=== PATIENT | female | born 1990 | race Hispanic/Latino ===

== ENCOUNTER 2017-06-16 00:02 | Emergency (ER) | payer OTHER, SELFPAY | END 2017-06-16 00:17 | disposition left against medical advice (07) | LOC: ERS 00:02 | DX: Z53.21 Procedure and treatment not carried out due to patient leaving prior to being seen by health care provider (principal) ==

== ENCOUNTER 2017-06-16 00:34 | Emergency (ER) | payer OTHER, SELFPAY ==
[2017-06-16 00:55] LABS: Bilirubin Unable to Interpret (Negative); Blood, Urine Unable to Interpret (Negative); Glucose, Urine (Dipstick) Unable to Interpret mg/dL (Negative); Ketone, Urine Unable to Interpret mg/dL (Negative); Nitrite Unable to Interpret (Negative); Protein, Urine (Dipstick) Unable to Interpret mg/dL (Neg-Trace); Urobilinogen UNABLE TO INTERPRET mg/dL (0.2-1.0)
[2017-06-16 00:57] LABS: Bacteria/HPF 3+ HPF (None Seen); Hyaline Casts/LPF 0-3 HYALINE CAST LPF (0-3 Hyaline)
== END 2017-06-16 01:22 | disposition home or self-care (01) ==
LOC: SCSER 00:34
DX: R35.0 Frequency of micturition (principal); R30.0 Dysuria; R10.30 Lower abdominal pain, unspecified; R11.0 Nausea
CPT/HCPCS: 81003; 81015; 81025; 87077; 87086; 87186; 99283

== ENCOUNTER 2018-05-07 15:48 | Emergency (ER) | payer OTHER ==
[2018-05-07 16:33] LABS: Bilirubin Negative (Negative); Blood, Urine Negative (Negative); Clarity CLOUDY (Clear); Glucose, Urine (Dipstick) Negative (Negative); Leukocyte Small (Negative); Nitrite Negative (Negative); Protein, Urine (Dipstick) Trace mg/dL (Neg-Trace); Specific Gravity, Urine 1.034 (1.002-1.036); Urobilinogen 0.2 mg/dL (0.2-1.0)
[2018-05-07 16:36] LABS: Bacteria/HPF 1+ HPF (None Seen); Pathc Cast-AUWi Flag 2.03 (0-2.49)
[2018-05-07 16:39] LABS: Hyaline Casts/LPF 0-3 HYALINE CAST LPF (0-3 Hyaline)
[2018-05-07 16:59] LABS: #Basophils 0.1 thou/uL (0.0-0.2); #Eosinphils 0.1 thou/uL (0.0-0.7); #Monocytes 0.5 thou/uL (0.11-0.59); #Neutrophils 4.7 thou/uL (1.40-6.50); %Basophils 1.2 % (0.0-1.0); %Eosinophils 1.1 % (0.0-10.0); %Lymphocytes 27.5 % (21.0-51.0); %Monocytes 6.5 % (0.0-10.0); %Neutrophils 63.8 % (42.0-75.0); Hemoglobin 13.8 g/dL (12.0-16.0); Mean Corpuscular HGB CONC 33.8 g/dL (32.0-36.0); Mean Corpuscular Hemoglobin 31.6 pg (27.0-31.0); Mean Corpuscular Volume 93.4 fL (78.0-98.0); Mean Platelet Volume 7.1 fL (7.4-10.4); Platelet Count 296 thou/uL (130-400); RBC Distribution Width 12.6 % (11.5-14.5); Red Blood Cell (RBC) Count 4.37 mill/uL (4.20-5.40); White Blood Cell (WBC) Count 7.4 thou/uL (4.8-10.8)
[2018-05-07] MEDS ORDERED: cefTRIAXone\\ROCEPHIN 2 GM VIAL ONE (16:59)
--- NOTE | 2018-05-07 17:03 | ULT ---
PELVIC ULTRASOUND INCLUDING TRANSABDOMINAL AND VASCULAR DUPLEX WITH COLOR AND SPECTRAL DOPPLER IMAGIN 05/07/18 HISTORY: 27-year-old female with vaginal bleeding. The uterus measures 12.4 x 10.0 x 9.5 cm. The right ovary measures 2.6 x 2.3 x 1.9 cm. The left ovary measures 2.0 x 1.9 x 1.1 cm. There is a viable intrauterine fetus noted with a crown-rump length of 6.6 cm equivalent to 12 weeks, 6 days. heart rate 160 beats per minute. No abscess or abnormal fluid collection. IMPRESSION: Viable intrauterine fetus at 12 weeks, 6 days. EDC 11/13/18. POS: [facility]
[2018-05-07 17:26] LABS: Anion Gap 11 mmol/L (10-20); BUN (Urea Nitrogen) 7 mg/dL (7.0-18.7); Calc. Creatinine Clearance 0 mL/min (70-130); Calcium 8.8 mg/dL (7.8-10.44); Carbon Dioxide 22 mmol/L (22-29); Chloride 107 mmol/L (98-107); Estimated GFR-MDRD Greater than 90; Glucose 78 mg/dL (70-105); Potassium 3.5 mmol/L (3.5-5.1); Sodium 136 mmol/L (136-145)
== END 2018-05-07 22:17 | disposition home or self-care (01) ==
LOC: EEVIPCON 15:48 → ERS 15:48
DX: N39.0 Urinary tract infection, site not specified (principal); J45.909 Unspecified asthma, uncomplicated; F90.9 Attention-deficit hyperactivity disorder, unspecified type; Z79.899 Other long term (current) drug therapy
CPT/HCPCS: 76856; 80048; 81003; 81015; 84702; 85025; 86900; 86901; 87086; 93976; 96361; 96365; J0696

== ENCOUNTER 2018-07-01 15:30 | Outpatient (CLI) | payer OTHER ==
--- NOTE | 2018-07-01 16:52 | ULT ---
ULTRASOUND OB COMPLETE STANDARD 07/01/18 HISTORY: Anatomy scan. COMPARISON: 05/07/18. FINDINGS: Single viable intrauterine with average ultrasound age of 20 week, 5 day with estimated simone e of delivery 11/13/18. Estimated weight is 13 oz, 91st percentile. BIOMETRY: Biparietal diameter 4.95 cm 21 week, 0 day Head circumference 17.94 cm 20 week, 3 day Abdominal circumference 15.38 cm 20 week, 5 day Femur length 3.32 cm 20 week, 3 day heart rate documented at 135 beats per minute. Amniotic fluid index measures 15.49 cm. The placenta is posterior and the presentation is cephalic. No placenta previa. The head, cerebellum, cisterna magna, and lateral ventricles, four chamber heart, stomach, kidneys, c ord insertion, bladder, cervicothoracic and lumbar and sacral spine as well as lips/nose, upper extre mities, lower extremities, and three vessel cord are all normal. Two separate echogenic intracardiac foci are present. IMPRESSION: Single viable intrauterine with normal anatomy scan with two separate echogenic intracardia c foci. POS: [facility]
== END 2018-07-01 15:31 | disposition home or self-care (01) ==
LOC: BICULT 15:30
PROVIDERS: ATTEND Family Medicine
DX: Z34.91 Encounter for supervision of normal pregnancy, unspecified, first trimester (principal); Z3A.17 17 weeks gestation of pregnancy
CPT/HCPCS: 76805

== ENCOUNTER 2018-10-18 14:04 | Day surgery (SDC) | payer OTHER ==
[2018-10-18] MEDS ORDERED: Sodium Chloride 0.9% 1,000 ML IV SCH (15:15)
[2018-10-18 17:01] LABS: Anion Gap 10 mmol/L (10-20); BUN (Urea Nitrogen) 7 mg/dL (7.0-18.7); Calc. Creatinine Clearance 0 mL/min (70-130); Calcium 8.3 mg/dL (7.8-10.44); Carbon Dioxide 22 mmol/L (22-29); Chloride 110 mmol/L (98-107); Estimated GFR-MDRD Greater than 90; Glucose 88 mg/dL (70-105); Potassium 3.8 mmol/L (3.5-5.1); Sodium 138 mmol/L (136-145)
--- NOTE | 2018-10-18 18:01 | PRG ---
DATE OF SERVICE: 10/18/2018 PRIMARY OB: Herberth Morales MD CHIEF COMPLAINT: Dizziness and presyncope at work. HISTORY OF PRESENT ILLNESS: The patient is a 28-year-old G3, P2 female with an intrauterine at 35 weeks and 1 day, who presents to Labor and Delivery ER from work, where she had dizziness and a near syncopal episode. 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 The patient does report she has these dizziness episodes, though none as severe as today. She reports that they do occur more frequently when she is getting up from a seating position. The patient reports that she drinks 3 to 4 quarts of water a day. Denies any recent illness. Denies nausea, vomiting, diarrhea, or constipation. She denies any chest pain or shortness of breath. Denies any hip problems, knee problems, or muscle weakness. Denies any new rashes. Denies vaginal bleeding or leakage of fluid. Denies urinary urgency. The patient does report she at our initial visit was still experiencing some dizziness. PAST MEDICAL HISTORY: Negative. PAST SURGICAL HISTORY: Negative. ALLERGIES: NO KNOWN DRUG ALLERGIES. MEDICATIONS: vitamins. SOCIAL HISTORY: Denies drug, alcohol, or tobacco use. OB LABS: GC and chlamydia are negative. She is rubella immune. Hepatitis B surface antigen nonreactive. Syphilis nonreactive. One-hour Glucola was 143. Her 3-hour test was 143, 142, 119, and 104. Blood type is unavailable. REVIEW OF SYSTEMS: Per HPI. PHYSICAL EXAMINATION: VITAL SIGNS: Blood pressure is 99/57, pulse of 77, respiratory rate of 18, saturating 98% on room air, and temperature 99.2. GENERAL: She appears to be in no acute distress. She is alert, oriented, cooperative, and pleasant to interact with. HEAD: Normocephalic and atraumatic. LUNGS: Clear to auscultation bilaterally. HEART: Has regular rate and rhythm. ABDOMEN: Soft and gravid, nontender. EXTREMITIES: Nontender, nonedematous. : Has been deferred. LABORATORY DATA: Sodium 138, potassium 3.8, chloride 110, creatinine of 0.55, glucose 88, calcium 8.3. EKG shows normal sinus rhythm. heart tracing shows baseline in the 130s with moderate long-term variability, positive accelerations, no decelerations. Tocometer is without contractions. ASSESSMENT AND PLAN: The patient is a 28-year-old G3, P1 female with an intrauterine at 35 weeks, who presented for presyncopal episode, which by history seems to be a vasovagal response. Her electrolytes are all within normal limits. EKG is normal given the overall picture. Reassurance has been given to the patient. She has been instructed to go home and rest today and I explained to her some of the physiology behind what may be occurring so that she can take more time in transitioning from sitting to standing when necessary. The patient has a followup appointment with her primary OB next week, which she has been encouraged to keep. Job ID: [id number]
--- NOTE | 2018-10-21 07:06 | EKG ---
Test Reason : Blood Pressure : / mmHG Vent. Rate : 069 BPM Atrial Rate : 069 BPM P-R Int : 140 ms QRS Dur : 082 ms QT Int : 426 ms P-R-T Axes : 033 007 007 degrees QTc Int : 456 ms Normal sinus rhythm with sinus arrhythmia Normal ECG When compared with ECG of 19-MAR-2008 03:42, No significant change was found Confirmed by NARINDER SCHULTZ ([id number]) on 10/21/2018 7:06:24 AM Referred By: SANNA Confirmed By:NARINDER SCHULTZ
== END 2018-10-18 17:06 | disposition home health service (06) ==
LOC: ERS 14:04 → L&D/OP 14:13
PROVIDERS: ATTEND Family Medicine
DX: O26.813 Pregnancy related exhaustion and fatigue, third trimester (principal); R42 Dizziness and giddiness; R55 Syncope and collapse; Z3A.35 35 weeks gestation of pregnancy; Z79.899 Other long term (current) drug therapy
CPT/HCPCS: 36415; 36416; 80048; 93005; 93010; 96360; 96361; 99283

== ENCOUNTER 2018-11-14 15:29 | Inpatient (IN) | payer OTHER ==
--- NOTE | 2018-11-14 17:04 | HP ---
HISTORY OF PRESENT ILLNESS: This is a 28-year-old female, G3, P1-0-1-1 at 39 weeks' gestation with an EDC of 11/20, being admitted for an elective Cytotec/Pitocin induction. The patient does have a history of one prior normal vaginal delivery. Her course has been uncomplicated. PAST MEDICAL HISTORY: Includes psoriasis, reactive airway disease, and attention deficit disorder. PAST SURGICAL HISTORY: Include tonsillectomy, adenoidectomy, spontaneous AB x1, spontaneous vaginal delivery x1, and hemorrhoidectomy. FAMILY HISTORY: Positive for diabetes and mental illness. SOCIAL HISTORY: The patient is a common-law. She has one son. She is a nonsmoker. She works as a beautician. REVIEW OF SYSTEMS: As above. PHYSICAL EXAMINATION: VITAL SIGNS: Stable, afebrile. HEENT: Clear. HEART: Clear. LUNGS: Clear. ABDOMEN: Gravid. EXTREMITIES: No edema. LABORATORY DATA: GBS positive. 3-hour GTT normal. A1c 3.8. HIV negative. Hematocrit 33.5. Thyroid normal. HIV negative. Hepatitis B negative. Urine culture negative. RPR negative. Rubella immune. O positive blood type. Pap smear normal. ASSESSMENT: 1. Term intrauterine . 2. GBS positive. PLAN: 1. Routine L and D orders. 2. Anesthesia preop. 3. GBS prophylaxis. 4. Cytotec/Pitocin induction. Job ID: [id number]
[2018-11-14] MEDS ORDERED: HYDROcodone/Acetaminophen 5/325 mg Tablet PO PRN (21:14)
[2018-11-14] MEDS ORDERED: Methylergonovine 0.2 MG/ML VIAL IM PRN (21:14)
[2018-11-14] MEDS ORDERED: Promethazine HCl 25 MG/ML VIAL IM PRN (21:14)
[2018-11-14] MEDS ORDERED: Misoprostol 200 MCG TAB PR PRN (21:14)
[2018-11-14] MEDS ORDERED: Lidocaine 1% (PF) 30 ML VIAL SC PRN (21:14)
[2018-11-14] MEDS ORDERED: NS w/ Oxytocin 10 units 500 ML IV SCH (21:14)
[2018-11-14] MEDS ORDERED: Acetaminophen 500 MG TAB PO PRN (21:14)
[2018-11-14] MEDS ORDERED: Ondansetron PF 4 MG/2 ML Vial IVP PRN (21:14)
[2018-11-14] MEDS ORDERED: Butorphanol Tartrate 1 MG/ML VIAL SLOW IVP PRN (21:14)
[2018-11-14] MEDS ORDERED: Penicillin G Potassium 5 MILL.UNITS in Sodium Chloride 0.9% 100 ML IVPB SCH (21:15)
[2018-11-14 21:54] VITALS: BMI 29.9
[2018-11-14] MEDS ORDERED: Misoprostol 100 MCG TAB VAG SCH (22:00)
[2018-11-14] MEDS: Lactated Ringer's 1,000 ML IV SCH (22:00)
[2018-11-14 22:28] LABS: Hemoglobin 10.6 g/dL (12.0-16.0); Mean Corpuscular HGB CONC 34.1 g/dL (32.0-36.0); Mean Corpuscular Hemoglobin 27.9 pg (27.0-31.0); Mean Corpuscular Volume 81.7 fL (78.0-98.0); Mean Platelet Volume 7.4 fL (7.4-10.4); Platelet Count 322 thou/uL (130-400); RBC Distribution Width 14.6 % (11.5-14.5); White Blood Cell (WBC) Count 7.3 thou/uL (4.8-10.8)
[2018-11-14 23:06] LABS: HBSAg Index 0.24 S/CO (0-0.99); Hep B Surf Ag Non-Reactive S/CO (NonReactive)
[2018-11-14 23:08] LABS: Syphilis Antibody Nonreactive (Nonreactive); Syphilis Antibody Index 0.04 S/CO (<1.00 Non-Reactive)
[2018-11-15] MEDS: Lactated Ringer's 1,000 ML IV SCH (02:30)
[2018-11-15] MEDS ORDERED: Fentanyl 4 mcg/Bup 0.1% Cadd 100 ML ONE (03:02)
[2018-11-15] MEDS: Penicillin G 2.5 MILL.units 2.5 MILL.UNITS in Premix Bag 1 BAG IVPB SCH ×3 (03:04→18:27)
[2018-11-15] MEDS ORDERED: Eucerin (Mineral Oil/Petrolatum,White) 30 gm Jar TOP PRN (03:17)
[2018-11-15] MEDS ORDERED: Ondansetron PF 4 MG/2 ML Vial IVP PRN ×2 (03:17→11:19)
[2018-11-15] MEDS ORDERED: Lactated Ringer's 500 ML IV PRN (03:17)
[2018-11-15] MEDS ORDERED: ePHEDrine/0.9% NaCl/PF SYRINGE 50 mg/10 ml SLOW IVP PRN (03:17)
[2018-11-15] MEDS ORDERED: Acetaminophen 325 MG TAB PO PRN (03:17)
[2018-11-15] MEDS ORDERED: Promethazine HCl 25 MG/ML VIAL IM PRN (03:17)
[2018-11-15] MEDS ORDERED: diphenhydrAMINE 50 MG/ML VIAL IVP PRN (03:17)
[2018-11-15] MEDS ORDERED: Naloxone HCl 0.4 mg/ml Vial IVP PRN ×2 (03:17)
[2018-11-15] MEDS ORDERED: Fentanyl 4 mcg/Bupivacaine 0.1% Cassette 100 ML EPIDURAL SCH (03:30)
[2018-11-15] MEDS ORDERED: Communication Order-Pharmacy FS SCH (03:30)
[2018-11-15] MEDS: NS / Oxytocin 40 units/1000ml 1,000 ML IV PRN ×2 (08:26→10:31)
--- NOTE | 2018-11-15 11:15 | OP ---
DATE OF PROCEDURE: 11/15/2018 PREOPERATIVE DIAGNOSIS: Term . POSTOPERATIVE DIAGNOSIS: Term . PROCEDURE PERFORMED: Spontaneous vaginal delivery, repair of first-degree midline episiotomy. DESCRIPTION OF PROCEDURE: This 28-year-old white [place] female, G3, P1, taken to the delivery in complete pushing. Prepped and draped sterilely. Delivered a baby girl with Apgars of 8 at 1 minute and 9 at 5 minutes. Baby did breathe and cry vigorously upon delivery. Delivery of the placenta, 3-vessel intact. We repaired a first-degree midline episiotomy with 3-0 chromic. Baby did well. Estimated blood loss 300 mL. Job ID: [id number]
[2018-11-15] MEDS ORDERED: HYDROcodone/Acetaminophen 5/325 mg Tablet PO PRN (11:19)
[2018-11-15] MEDS ORDERED: NS / Oxytocin 40 units/1000ml 1,000 ML IV SCH (11:19)
[2018-11-15] MEDS ORDERED: Milk Of Magnesia 30 ML UDCUP PO PRN (11:19)
[2018-11-15] MEDS ORDERED: Zolpidem Tartrate 5 MG TAB PO PRN (11:19)
[2018-11-15] MEDS ORDERED: Adacel (T-DAP) 0.5 ML SYRINGE IM ONE (11:19)
[2018-11-15] MEDS ORDERED: Lanolin Ointment 7 GM TUBE TOP PRN (11:19)
[2018-11-15] MEDS ORDERED: Bisacodyl 10 MG SUPP PR PRN (11:19)
[2018-11-15] MEDS: Ferrous Sulfate 325 MG TAB PO SCH (13:03)
[2018-11-15] MEDS ORDERED: Ibuprofen 800 MG TAB PO SCH (15:00)
[2018-11-15] MEDS: Ibuprofen 800 MG TAB PO SCH ×2 (15:31→22:53)
[2018-11-15] MEDS ORDERED: Bupivacaine/Epinephrine 0.25% 30 ML VIAL ONE (18:00)
[2018-11-15] MEDS: Docusate Calcium (SURFAK) 240 MG CAP PO SCH (21:33)
[2018-11-16] MEDS: Ibuprofen 800 MG TAB PO SCH ×2 (06:04→13:22)
[2018-11-16 06:15] LABS: Hemoglobin 9.3 g/dL (12.0-16.0); Mean Corpuscular HGB CONC 33.8 g/dL (32.0-36.0); Mean Corpuscular Hemoglobin 28.1 pg (27.0-31.0); Mean Corpuscular Volume 83.1 fL (78.0-98.0); Mean Platelet Volume 7.7 fL (7.4-10.4); Platelet Count 243 thou/uL (130-400); RBC Distribution Width 14.9 % (11.5-14.5); White Blood Cell (WBC) Count 6.4 thou/uL (4.8-10.8)
[2018-11-16 08:12] VITALS: BP 99/55; TEMP 97.8
[2018-11-16] MEDS: Ferrous Sulfate 325 MG TAB PO SCH (08:12)
[2018-11-16] MEDS: Docusate Calcium (SURFAK) 240 MG CAP PO SCH (08:12)
[2018-11-16] MEDS ORDERED: Prenatal Vitamin 1 TAB PO SCH (09:00)
== END 2018-11-16 17:00 | disposition home or self-care (01) | DRG 807 ==
LOC: EEVIPCON 21:09 → L&D 21:09 → 3SW 11-15 11:18 → EDSTATUS 11-21 15:28
PROVIDERS: ADMIT Family Medicine; ATTEND Family Medicine
PROC: 10E0XZZ Delivery of Products of Conception, External Approach (ICD-10-PCS; principal; 2018-11-15)
PROC: 3E033VJ Introduction of Other Hormone into Peripheral Vein, Percutaneous Approach (ICD-10-PCS; 2018-11-15)
PROC: 0W8NXZZ Division of Female Perineum, External Approach (ICD-10-PCS; 2018-11-15)
DX: O99.824 Streptococcus B carrier state complicating childbirth (principal); Z37.0 Single live birth; Z3A.39 39 weeks gestation of pregnancy; Z90.89 Acquired absence of other organs
CPT/HCPCS: 36415; 51702; 85027; 86780; 86850; 86900; 86901; 87340; 90715; J2001; J2540; J3490

== ENCOUNTER 2021-03-08 23:22 | Emergency (ER) | payer OTHER ==
[2021-03-09] MEDS ORDERED: Lidocaine 1% w/Epinephrine 1:100K 20 ML VIAL ONE (01:22)
[2021-03-09] MEDS ORDERED: Bupivacaine 0.5% 10 ML VIAL ONE (01:22)
== END 2021-03-09 01:50 | disposition home or self-care (01) ==
LOC: ERS 23:22
DX: K02.9 Dental caries, unspecified (principal); J45.909 Unspecified asthma, uncomplicated
CPT/HCPCS: 64400; J3490

== ENCOUNTER 2021-03-11 16:12 | Emergency (ER) | payer OTHER ==
[2021-03-11] MEDS ORDERED: Lidocaine 1% w/Epinephrine 1:100K 20 ML VIAL ONE (17:40)
[2021-03-11] MEDS ORDERED: Bupivacaine 0.5% 10 ML VIAL ONE (17:40)
== END 2021-03-11 18:10 | disposition home or self-care (01) ==
LOC: ERS 16:12
DX: K08.89 Other specified disorders of teeth and supporting structures (principal)
CPT/HCPCS: 64400; J3490

== ENCOUNTER 2023-02-23 13:30 | Outpatient (CLI) | payer OTHER | END 2023-02-23 13:31 | disposition home or self-care (01) | LOC: RAD 13:30 | PROVIDERS: ATTEND Nurse Practitioner Family | DX: B34.9 Viral infection, unspecified (principal); U07.1 COVID-19 | CPT/HCPCS: 71046; 87635 ==

== ENCOUNTER 2023-05-05 13:10 | Outpatient (CLI) | payer OTHER | END 2023-05-05 13:11 | disposition home or self-care (01) | LOC: BICMAMMO 13:10 | PROVIDERS: ATTEND Nurse Practitioner Family | DX: N64.4 Mastodynia (principal) | CPT/HCPCS: 77066; G0279 ==